=== PATIENT | male | born 1980 | race Caucasian/White ===

== ENCOUNTER 2016-09-04 22:54 | Emergency (ER) | payer OTHER ==
[2016-09-04 23:05] VITALS: TEMP 99.1
[2016-09-04] MEDS ORDERED: KETOROLAC TROMETHAMINE 30 MG/ML SOL IM ONE (23:26)
[2016-09-04] MEDS ORDERED: KETOROLAC TROMETHAMINE 30 MG/ML SOL ONE (23:29)
[2016-09-04 23:39] LABS: BASOPHILS % (AUTO) 1 % (0-3); EOSINOPHILS % (AUTO) 1 % (0-9); HEMATOCRIT 39 % (39-53); MEAN CORPUSCULAR HGB CONC 35.3 gm/dl (32.0-36.0); MEAN CORPUSCULAR VOLUME 87 fL (80-100); MONOCYTES % (AUTO) 10.5 % (0-12); NEUTROPHILS % (AUTO) 64.3 % (37-80)
[2016-09-05] LABS: CALCIUM 8.7 mg/dl (8.5-10.1); POTASSIUM 4.2 mMol/L (3.5-5.1); THYROID STIMULATING HORMONE 4.435 uU/ml (0.358-3.740)
[2016-09-05 00:20] VITALS: BP 98/43; PULSE 71; RESP 19; O2SAT 100
== END 2016-09-05 00:16 | disposition home or self-care (01) | DRG 312 ==
LOC: ED 22:54
DX: R55 Syncope and collapse (principal)
CPT/HCPCS: 36415; 80048; 84443; 85025; 93005; 96372; 99284; J1885